=== PATIENT | female | born 1945 | race Caucasian/White ===

== ENCOUNTER → 2017-08-30 | Outpatient (CLI) | payer MEDICARE, BC ==
[~2017-08-30] MED LIST: AMITRIPTYLINE H50 M1 PO; ASPIRIN 81M81 MG/TA2 PO; COZAAR100 MG PO; DULCOLAX STOOL100 MG PO; ESTRACE0.5 MG PO; FENTANYL 25 MCG TD; FERROUS SU325 MG/TAB PO; GLUCOPHAGE500 MG/TAB PO; LANTUS100 U/ML SQ; LASIX 40MG TABL40 MG PO; NATURAL E400 IU PO; NORCO 325 MG-101 TAB PO; PRIL40 PO; SYNTHROID0.1 MG/TAB PO; TOPROL XL 50MG50 MG PO
== END ==
LOC: COL.LAB 12:47
DX: R93.422 Abnormal radiologic findings on diagnostic imaging of left kidney (principal)

== ENCOUNTER → 2018-11-03 | Outpatient (CLI) | payer MEDICARE, BC ==
[~2018-11-03] MED LIST changes: +NORCO 325 MG-51 TAB PO; +NOVLOG SQ
== END ==
LOC: COL.RAD 13:01
DX: R93.422 Abnormal radiologic findings on diagnostic imaging of left kidney (principal)

== ENCOUNTER → 2019-11-14 | Outpatient (CLI) | payer MEDICARE, BC | LOC: COL.RAD 14:07 | DX: N28.81 Hypertrophy of kidney (principal); R31.9 Hematuria, unspecified ==

== ENCOUNTER → 2020-06-19 | Outpatient (CLI) | payer MEDICARE, BC | LOC: MC.RAD 14:15 | DX: Z12.31 Encounter for screening mammogram for malignant neoplasm of breast (principal); Z97.8 Presence of other specified devices ==

== ENCOUNTER → 2020-12-18 | Outpatient (CLI) | payer MEDICARE, BC | LOC: COL.RAD 09:55 | DX: R93.422 Abnormal radiologic findings on diagnostic imaging of left kidney (principal) ==